=== PATIENT | female | born 1955 | race African-American/Black ===

== ENCOUNTER → 2018-07-18 | Outpatient (REF) | payer MEDICARE, OTHER ==
[2018-07-18 10:11] LABS: TSH, 3RD GENERATION 15.8 uIU/mL (0.47 - 4.68)
== END | disposition home or self-care (01) ==
LOC: LAB 08:10
PROVIDERS: ATTEND Internal Medicine Endocrinology, Diabetes & Metabolism
DX: E05.90 Thyrotoxicosis, unspecified without thyrotoxic crisis or storm (principal)